=== PATIENT | female | born 1965 | race Caucasian/White ===

== ENCOUNTER 2023-04-06 14:56 | Outpatient (REF) | payer OTHER, SELFPAY ==
--- NOTE | ~2023-04-06 | XR_ITS ---
EXAMINATION: XR LUMBOSACRAL SPINE WITH OBLIQUES CLINICAL INFORMATION: The secondary scoliosis, site unspecified COMPARISON: None available. TECHNIQUE: AP, both oblique, and lateral views of the lumbar spine. Lateral view of the lumbosacral junction. Lateral flexion and extension views FINDINGS: There 5 nonrib-bearing lumbar-type vertebral bodies. There is marked rotatory curve of the lumbar spine, convex left. The height of the vertebral bodies is well-maintained. There is disc space narrowing at all lumbar levels. Degenerative facet joint disease is seen at L4-L5 and marked at L5-S1. There is mild retrolisthesis of L3 with respect to L4 which is unchanged on flexion and extension. XR/XR lumbar spine 4V min IMPRESSION: 1. Marked rotatory curve of the lumbar spine, convex left. 2. Multilevel degenerative disc disease and degenerative facet joint disease. 3. Mild retrolisthesis of L3 with respect to L4.
== END 2023-04-06 14:57 | disposition home or self-care (01) ==
LOC: HO.HOSX 14:56
PROVIDERS: Visit Provider Neurological Surgery
DX: M51.36 Other intervertebral disc degeneration, lumbar region (principal); M41.50 Other secondary scoliosis, site unspecified
CPT/HCPCS: 72110

== ENCOUNTER 2023-06-28 06:04 | Inpatient (IN) | payer OTHER, SELFPAY ==
[2023-06-15 12:23] VITALS: BP 126/81; PULSE 78; RESP 20; O2SAT 97; BMI 37.6
--- NOTE | 2023-06-15 12:33 | HO.ANESPROP2 ---
Documented by User: Marie Marquez NP 06/18/23 13:14 HPI - Anesthesia Eval Consult details Narrative: 57yo F for L3-S1 Oblique Lumbar Interbody Fusion,(poss L2), 06/28/23 PONV - will try aponvie BESSY Active Problems Active Problems: All Active Problems (Updated 06/15/23 @ 12:15 by Jossy Burdick RN) Scoliosis due to degenerative disease of spine in adult patient (Acute) Past Medical History Medical History Arthritis Back pain Chronic back pain PONV (postoperative nausea and vomiting) RBBB Rheumatic fever Scoliosis Sepsis Family History Family history of problems with anesthesia: Yes (sister PONV) Surgical History Surgical History History of History of pubovaginal sling Hx of appendectomy Hx of bilateral salpingectomy Hx of cholecystectomy Hx of mastectomy Hx of reduction mammoplasty History of Problems with Anesthesia: Yes (PONV) Social History Social History Are you a primary home health care worker to a significant other at home: No Do you presently have visiting nurse or other home services: No Patient Tobacco Use Status: Never used Tobacco Use of substances other than those prescribed or required for medical reasons: No Have you been hit, kicked, punched, or otherwise hurt by someone within the past year? If so, by whom?: No Are you DNR?: No Advance Directives: No Advance Directives Information Provided: No (declined) Advance Directives on File: No Recently lost weight without trying: No Eating poorly because of decreased appetite: No Nutrition Risks: No Nutritional Risk Poor oral hygiene: No (implants lower front four teeth and one left and one right lower crowns-mol) Meds Allergies Allergy/AdvReac Type Severity Reaction Status Date / Time deer fly Allergy Severe Anaphylaxis Uncoded 06/28/23 06:29 Home Medications Medication Instructions Recorded Confirmed Last Taken Type acetaminophen 500 mg tablet 1,000 mg PO QAM 06/15/23 06/15/23 Unknown History celecoxib 200 mg capsule 200 mg PO DAILY PRN Pain 06/15/23 06/15/23 Unknown History cetirizine 5 mg tablet 5 mg PO DAILY 06/15/23 06/15/23 Unknown History cholecalciferol (vitamin D3) 50 50 mcg PO DAILY 06/15/23 06/15/23 Unknown History mcg (2,000 unit) capsule (Vitamin D3) cyclobenzaprine 10 mg tablet 10 mg PO BEDTIME PRN Muscle Spasm 06/15/23 06/15/23 Unknown History gabapentin 100 mg capsule 100 mg PO TID 06/15/23 06/15/23 Unknown History Exam Exam Date and Time: June 15, 2023 1233 Pertinent Lab Results Pertinent Lab Results: BMP and CBC done 06/2023 from outside facility WNL Narrative Narrative: EKG 06/2023 SR @ 69 Incomp RBBB (old) Airway Mallampati Class: II TM Dist: >3cm Neck ROM: Full Loose/Missing/Broken Teeth: No (Implant 23-26, crowned molas) Heart: RRR Lungs: CTAB Assessment and Plan Assessment Anesthesia Assessment: Anesthesia Plan Discussed and PAT Visit Final Anesthetic Review Family History of Problems with Anesthesia: Yes (sister PONV) History of Problems with Anesthesia: Yes (PONV) Documented by User: Alexx Velasquez MD 06/28/23 08:24 [facility] Past Medical History Medical History Arthritis Back pain Chronic back pain PONV (postoperative nausea and vomiting) RBBB Rheumatic fever Scoliosis Sepsis Surgical History Surgical History History of History of pubovaginal sling Hx of appendectomy Hx of bilateral salpingectomy Hx of cholecystectomy Hx of mastectomy Hx of reduction mammoplasty Social History Social History Are you a primary home health care worker to a significant other at home: No Do you presently have visiting nurse or other home services: No Patient Tobacco Use Status: Never used Tobacco Use of substances other than those prescribed or required for medical reasons: No Have you been hit, kicked, punched, or otherwise hurt by someone within the past year? If so, by whom?: No Are you DNR?: No Advance Directives: No Advance Directives Information Provided: No (declined) Advance Directives on File: No Recently lost weight without trying: No Eating poorly because of decreased appetite: No Nutrition Risks: No Nutritional Risk Poor oral hygiene: No (implants lower front four teeth and one left and one right lower crowns-mol) Meds Allergies Allergy/AdvReac Type Severity Reaction Status Date / Time deer fly Allergy Severe Anaphylaxis Uncoded 06/28/23 06:29 Home Medications Medication Instructions Recorded Confirmed Last Taken Type acetaminophen 500 mg tablet 1,000 mg PO QAM 06/15/23 06/15/23 Unknown History celecoxib 200 mg capsule 200 mg PO DAILY PRN Pain 06/15/23 06/15/23 Unknown History cetirizine 5 mg tablet 5 mg PO DAILY 06/15/23 06/15/23 Unknown History cholecalciferol (vitamin D3) 50 50 mcg PO DAILY 06/15/23 06/15/23 Unknown History mcg (2,000 unit) capsule (Vitamin D3) cyclobenzaprine 10 mg tablet 10 mg PO BEDTIME PRN Muscle Spasm 06/15/23 06/15/23 Unknown History gabapentin 100 mg capsule 100 mg PO TID 06/15/23 06/15/23 Unknown History Assessment and Plan Final Anesthetic Review NPO: No ASA Class: II Final Preanesthetic Review: No Changes in Pt Med Stat, Meds/Allgs Chart Reviewed, Consent Obtained/Reviewed and Anes Risks/Benef Reviewed Patient Risk: Intermediate Procedure Risk: Intermediate Anesthetic Plan Anesthetic Plan: GA and Agree w/ Assess. and Plan Disposition: Standard PACU
[2023-06-28] VITALS (16 sets, daily range): BP systolic 96–149; BP diastolic 49–97; PULSE 83–108; RESP 13–24; TEMP 36–36.6; O2SAT 94–100
--- NOTE | ~2023-06-28 | FL_ITS ---
EXAMINATION: XR FLUOROSCOPY WITH IMAGES CLINICAL INFORMATION: Oblique lateral interbody fusion. COMPARISON: Lumbar spine x-ray March 2023. TECHNIQUE: Total dose: 320.9 mGy DAP 55.301: Gy-cm2 Time: 4.2 min Images: 4 Images - 2 C-arms used Tech: HELEN/TL/VERONICA SUPERVISOR OF RESEARCH: Dr. Aleman. FINDINGS: Fluoroscopy guidance provided for disc prostheses placement at the L3-L4, L4-L5 and L5-S1 levels. FL/FL guidance in OR IMPRESSION: Fluoroscopy guidance for lumbar spine surgery.
[2023-06-28] MEDS: Gabapentin 300 MG CAPSULE PO ×3 (06:30→20:00)
[2023-06-28] MEDS: methocarbamoL 750 MG TABLET PO (06:30)
[2023-06-28] MEDS: Aprepitant 32 MG/4.4 ML VIAL IVPUSH (06:53)
[2023-06-28] MEDS: Lactated Ringers 1,000 ML 100 ML IVCONT (07:09)
--- NOTE | 2023-06-28 07:13 | MHC.SHP ---
Pre-Procedural Eval Section A Date of Service: 06/28/23 The patient is an INPATIENT: No Changes since office visit: No Cold of Flu in the past 2 weeks, No New Medical Problems, No Changes in Medication and No Patient answered all questions The History & Physical has been completed within 30 days and I have reviewed it.: No Section B Chief Complaint: Other secondary scoliosis, site unspecified Allergies: Allergies Allergy/AdvReac Type Severity Reaction Status Date / Time deer fly Allergy Severe Anaphylaxis Uncoded 06/28/23 06:29 Review of Systems Sugical H&P ROS: Negative: Constitution, Cardiovascular, Respiratory, Neurological, Psychiatric, Hem-Onc, Allergic/Immunologic, Gastrointestinal, Genitourinary, Musculoskeletal, Integumentary, Endocrine and Eyes/Ears/Nose/Throat Exam Surgical H&P Exam: Not Evaluated: HEENT, Not Evaluated: Heart, Not Evaluated: Lungs, Not Evaluated: Extremities, Not Evaluated: Abdomen, Not Evaluated: Skin and Not Evaluated: Neurological Plan Diagnosis/Plan: Unchanged I have reviewed the history and physical and performed a pertinent physical examination on my patient. No changes have occurred unless specified. L3-S1 Oblique Lumbar Interbody Fusion Time Spent With Patient Time: Total time managing care of this patient today _10___ minutes.
--- NOTE | 2023-06-28 11:14 | P.OP_ITS ---
Operative Note Operative Note Date of Service: 06/28/23 Narrative: The patient was brought to the operating room, positioned on the table supine and general anesthesia was administered. Patient was then turned to the right decubitus position with left side up. C-arm image was obtained in AP and lateral planes and anterior border of the spine and disk space projections were marked on the skin.The abdomen was clipped and then prepped and draped in the usual sterile fashion. After timeout was done, incision was made from 2 cm medial and inferior to the Anterior Superior iliac spine in oblique direction 5 cm long. It was brought through subcutaneous tissue and the external oblique aponeurosis in line with the skin incision and transverse and internal abdominal muscles were split along the fibers. The pre-peritoneal plane was entered, peritoneum was bluntly dissected off and iliac artery pulse was felt. Self- retaining retractor with two deep blades was inserted and peritoneum protected with moist gauzes. Left internal iliac vein was identified and dissection was carried along the medial surface of the iliac vein up to the bifurcation. The middle sacral vessels were transected and L5-S1 disc space was bluntly and sharply dissected using bipolar cautery staying directly on the surface of the spine. The midline of the disk space was marked with C-arm image guide.At this time some bleeding was encountered from the ilial vein likely from traction and several clips were applied with good hemostasis Dr. Aleman then proceeded with the corpectomy and fusion, which will be dictated separately by him. After this was done, hemostasis was checked and was excellent including the repaired portion of the iliac vein. Left ureter was examined prior to closure and was intact. There was good left external iliac artery pulse. Diluted 0.5% Marcaine and Lidocaine was injected in the fascia and subcutaneous tissue. The incision was irrigated and closed by layers using a 2-0 Vicryl for transverse fascia, 0 PDS for the external oblique, 3-0 Vicryl for subcutaneous tissue and 4-0 Monocryl for skin. Exo-fin glue was then applied.
--- NOTE | 2023-06-28 13:17 | P.OP_ITS ---
Operative Note Operative Note Date of Service: 06/28/23 Narrative: Preop Diagnosis: 1.) lumbar degenerative scoliosis and lumbar radiculopathy Procedure: L3-4, L4-5 and L5-S1 discectomy, arthrodesis and implantation cage through an anterolateral, retroperitoneal approach; posterior instrumented fusion L3-S1; allograft Consent Informed Consent was obtained for this operation. I have explained the nature, purpose and benefits of the operation. I have discussed the risks and benefit of the operation including possible complications or adverse events with patient/family. Alternative(s) were discussed with the patient with their relative benefits and risks as well as the consequences of not accepting the operation were included in obtaining consent. Surgeon: AXEL CONDON MD, PHD Procedure Assisted By: Magdi Flores MD, co-surgeon and Tony Brar Description of Procedure this 57-year-old female her suffering from intractable low back pain and a left lumbar radiculopathy. Imaging shows a lumbar degenerative scoliosis in the lower lumbar region with additional multilevel neural foraminal stenosis. The patient was offered an oblique lumbar interbody fusion L3-S1. The procedure complications were explained. The patient was consented. The patient was brought to the operating room and endotracheally intubated. The patient was turned in a lateral position with the left side up. Prep and drape was done followed by timeout. A 3 inch incision was made in the left lower abdominal quadrant by the access surgeon, Dr. Flores to expose the L5-S1 disc. The approach will be dictated in a separate report. I took over the procedure with the L5-S1 disc space was exposed. An annulotomy was done and with the elevator Estrella the disc material was release of the L5 and S1 endplates. disc material was removed and the endplates were prepared. A [id number] mm with 12 degree lordosis 4 Web cage was inserted into the L5-S1 disc space under fluoroscopic guidance. Then the attention was turned to the L3-4 and L4-5 disc spaces.The muscle fascia was opened after which the 3 muscle layer was split to enter the retroperitoneal space. Dilators were docked in the anterior one third of the L4-5 disc space followed by a retractor. The retractor was opened. The L4-5 disc space was exposed. An annulotomy was done after which an elevator Estrella was used to release the disc material from its endplates and to perforate the contralateral side. A partial discectomy was done. An 8 mm height trial implant was inserted. The discectomy was completed. The endplates were prepared. An 8 mm x 50 mm with 0 degree lordosis 4 web cage filled with allograft was inserted into the disc space under fluoroscopic guidance. The L3-4 disc space underwent a the similar procedure. When the endplates were prepared an 8 mm x 45 mm in with severe degree lordosis 4 web cage filled with allograft was inserted into the disc space under fluoroscopic guidance. The insertion of the 3 cages resulted in excellent correction of the lumbar degenerative scoliosis and indirect decompression of the neural foramina.. The retractor was removed. Dr. Flores closed the anterolteral incision. This marked first part of the procedure. The patient was turned prone on the [place] spine table. 2C arms were installed for fluoroscopy. Prep and drape was done followed by a second timeout. 2 paramedian incisions were made lateral from the L3 pedicle. The muscle fascia was opened after which the muscle layer was split bluntly to expose the posterolateral gutter. The following steps were taken. A pediguard tap was used to create a transpedicular trajectory into the vertebral body. A K wire was placed. A specially designed instrument was advanced over the K wire to decorticate the posterolateral gutter in preparation for the posterolateral fusion. A pedicle screw was advanced over the K wire and the K wire was removed. The steps were done for the bilateral L3, L4, L5 and S1 pedicles. A total of 8 screws screws were placed with a diameter of 6.5 x 45 mm in bilateral L3, L4 and L5 pedicles and a 6.5 x 40 mm screw in the bilateral S1 pedicles. The pedicle screws were connected with 100 mm jordon bilaterally and locked down with locking caps. The extension towers were removed. The posterolateral gutter was filled with allograft to complete the posterolateral L3-S1 fusion Hemostasis was done and the incision was closed in 2 layers. Steri-Strips were used to dion roximate the incision. An OpSite were taken and was used to cover the incision. All sponge and needle counts were correct. Patient was extubated and transferred in stable is to recovery room. The insertion of the bilateral rods and closure of the paramedian incisions was done by Tony TOM. Anesthesia: General Estimated Blood Loss (ml): 400 mL Duration of Surgery: 5hrs Postoperative Plan: Admit to inpatient for observation Complications: None
[2023-06-28] MEDS: fentaNYL citrate/PF 100 MCG/2 ML VIAL 25 MCG IVPUSH ×4 (14:15→14:55)
[2023-06-28] MEDS: HYDROmorphone HCl 0.5 MG/0.5 ML SYRINGE 0.25 MG IVPUSH ×2 (14:25→14:35)
[2023-06-28] MEDS: ceFAZolin Sodium/Dextrose,Iso 2 GM/50 ML PIGGYBACK IV ×2 (16:11→20:01)
[2023-06-28] MEDS: oxyCODONE HCl Immed Release 5 MG TABLET 10 MG PO (16:11)
[2023-06-28] MEDS: HYDROmorphone HCl 1 MG/ML SYRINGE IVPUSH ×2 (16:48→19:59)
[2023-06-28] MEDS: Acetaminophen 1,000 MG/100 ML PIGGYBACK 400 MG IV ×2 (17:54→23:50)
[2023-06-28] MEDS: Ketorolac Tromethamine 15 MG/ML VIAL IVPUSH (19:09)
[2023-06-28] MEDS: Cyclobenzaprine HCl 5 MG TABLET PO (19:16)
[2023-06-28] MEDS: ondansetron HCL 4 MG/2 ML VIAL IVPUSH (19:59)
[2023-06-28] MEDS: Docusate Sodium 100 MG CAPSULE PO (20:00)
[2023-06-28] MEDS: oxyCODONE HCl Immed Release 5 MG TABLET PO (22:25)
[2023-06-29] MEDS: Ketorolac Tromethamine 15 MG/ML VIAL IVPUSH ×3 (01:59→12:55)
[2023-06-29] MEDS: ceFAZolin Sodium/Dextrose,Iso 2 GM/50 ML PIGGYBACK IV (02:00)
[2023-06-29 03:38] VITALS: BP 114/58; PULSE 88; RESP 16; TEMP 36.4; O2SAT 96
[2023-06-29] MEDS: 0.9 % Sodium Chloride 1,000 ML 75 ML IVCONT (05:50)
[2023-06-29] MEDS: Acetaminophen 1,000 MG/100 ML PIGGYBACK 400 MG IV ×2 (05:50→12:54)
[2023-06-29] MEDS: oxyCODONE HCl Immed Release 5 MG TABLET PO ×2 (05:54→10:46)
[2023-06-29 07:03] VITALS: BP 101/59; PULSE 85; RESP 16; TEMP 36.6; O2SAT 99
--- NOTE | 2023-06-29 07:45 | HO.NEURO.PN ---
Neurosurgery Operative Note Date of Service: 06/29/23 Narrative: Postoperative day 1. L3-S1 oblique lumbar interbody fusion Patient reports back pain overnight, also reporting some tingling into her foot and calf. Also reporting a little bit of pain going into her anterior thigh. She was up moving around and does not feel any specific weakness is more just the tingling and numbness feeling. She has been drinking fluids without any issues. She has been up to the commode voiding. Afebrile, vital signs stable Physical exam: Patient is awake alert oriented no acute distress, patient examined at bedside with Dr. Aleman, patient has full strength of bilateral lower extremities. She does have some reduced sensation along the top of her foot. The rest of the lower extremity sensation is normal. Abdomen is nondistended nontender, left lower quadrant incision is clean and dry with Steri-Strips in place, no signs of hematoma or distention. No guarding. Back dressings are clean and dry, no signs of hematoma. Impression: Postop day 1. L3-S1 oblique lumbar interbody fusion, clinically having back pain and some numbness in her left foot. Her strength is intact, we suspect this is nerve irritation. She is otherwise doing okay, we suspect she will do well with PT today and we can discharge her home later today if she clears with them. She also must be tolerating a regular diet. Patient seen at bedside with Dr. Aleman.
--- NOTE | 2023-06-29 07:48 | P.DS_ITS ---
DS: Providers Provider Date of Service: 06/29/23 Date of admission: 06/28/23 06:04 Date of discharge: 06/29/23 Primary care physician: Slim Ray MD Admitting clinician: Michael Aleman DS: Diagnosis Discharge Diagnosis (1) Scoliosis due to degenerative disease of spine in adult patient: Status: Acute DS: Summary Time Spent with Patient Time attestation: Total time managing care of this patient today ____ minutes. Discharge coordination time: Less than 30 minutes Quality: Safe Use of Opioids Does Pt have an Active Cancer Diagnosis on the Problem List?: No Quality: Stroke Does the patient have a stroke diagnosis?: No Physical Exam Vital Signs: Vital Signs: Last Vital Signs Temp 98 F 06/29/23 07:03 Pulse 85 06/29/23 07:03 Resp 16 06/29/23 07:03 BP 101/59 L 06/29/23 07:03 Pulse Ox 99 06/29/23 07:03 O2 Del Method Room Air 06/29/23 07:03 O2 Flow Rate 3 06/28/23 15:30 BMI result Body Mass Index 37.6 DS: Data Data Completed and Pending Labs on day of discharge: Laboratory Results - last 24 hr 06/28/23 08:52 Blood Type A Negative Antibody Screen NEGATIVE Discharge Plan Discharge Anticipated Discharge Date/Time: 06/29/23 14:48 Patient Disposition: Home, Self-Care Discharge Diagnosis: Lumbar scoliosis Referrals: Slim Ray MD [Primary Care Provider] - 1 Week Discharge Medications: New oxycodone 5 mg tablet See Rx Instructions .ROUTE .COMPLEX PRN (Reason: pain) Qty: 30 0RF Rx Instructions: 1-2 tabs po q4 hours prn pain Partial Fill upon patient request. gabapentin 300 mg capsule 300 mg PO TID Qty: 90 2RF ibuprofen 800 mg tablet 800 mg PO Q8H Qty: 60 0RF Continued cyclobenzaprine 10 mg tablet 10 mg PO BEDTIME PRN (Reason: Muscle Spasm) cetirizine 5 mg Tablet 5 mg PO DAILY cholecalciferol (vitamin D3) [Vitamin D3] 50 mcg (2,000 unit) Capsule 50 mcg PO DAILY Held celecoxib 200 mg capsule 200 mg PO DAILY PRN (Reason: Pain) Hold Instructions: Resume on 07/05/23. Discontinued gabapentin 100 mg capsule 100 mg PO TID acetaminophen 500 mg Tablet 1,000 mg PO QAM Discharge Orders: Discharge Order (Routine); Ordered 06/29/23 Ordered By: Tony Antonio Diet: Advance to usual diet Activity on Discharge: As tolerated Stand Alone Forms: Patient Portal Discharge page Activity Restrictions/Additional Instructions: After your spinal surgery we ask you to observe the following restrictions/guidelines: Activity: It is normal to feel some discomfort as you increase your activity, but that will improve with time. We ask you avoid heavy lifting or acitivities that cause pain. As a general rule, 8lbs is a safe limit for lifting right after surgery. Walk as much as you feel comfortable but not to exhaustion. You will feel extra tired the first few days after surgery. Stay well hydrated. It is OK to walk up and down stairs You may return to driving when you are off narcotics (such as vicodin, oxycodone, dilaudid, etc), and you are back to normal functional capacity. If you have any concerns please check with office before driving. Return to work is specific to each patient and each surgery, so please speak with your doctor/PA at first follow up. Please bring paperwork such as FMLA at that time if you need it filled out. Medications: For optimum pain control, it is best to start with a combination of 500 mg of Tylenol every 4 hours with 600 mg of Motrin every 8 hours, and use narcotics as needed in between for breakthrough pain. We will give you a short supply of narcotics after surgery (usually one weeks worth). If you need more please call the office but do not use more than prescribed. You will need to give our office 48 hours notice if you need narcotics refilled and we do not fill narcotics on weekends or evenings. If you are on a narcotic, it is a good idea to take a stool softener such as colace or senna to avoid constipation If you take blood thinner such as aspirin, Plavix, Coumadin, Effient, Eliquis et c for conditions such as Afib, DVT, Pulmonary embolus, coronary disease, stents etc please speak with your surgeon about specific details as to when you can resume these medications. You can resume NSAIDs on post op day 1 (eg: Motrin, Naproxen, etc). Follow up: Please call the office, , after surgery to arrange a 3 week follow up for wound check. Wound Care: You may remove your dressing on the first day after surgery. You may leave open to air. Please do not remove the steri strips underneath. they will fall off on their own in one week. IT IS NORMAL FOR THE WOUND TO OOZE OR BE BLOODY FOR A FEW DAYS AFTER SURGERY. IF THIS HAPPENS JUST PLACE NEW DRESSING OVER IT TO AVOID STAINING CLOTHES. You may shower on post op day # 1 We ask that you do not let the water soak the wound. If it does get wet, just towel dry lightly. Please do not scrub your incision or place any type of chemical/ointment on the wound. No tub baths, pools or jacuzzis for one month. If you have any leaking or redness from your wound, or fevers, please call office Care Plan Goals: dc home Health Concerns: none Plan of Treatment: dc home Assessment: stable
[2023-06-29] MEDS: Loratadine 10 MG TABLET PO (07:49)
[2023-06-29] MEDS: Docusate Sodium 100 MG CAPSULE PO (07:49)
[2023-06-29] MEDS: Cholecalciferol (Vitamin D3) 25 MCG TABLET 50 MCG PO (07:49)
[2023-06-29] MEDS: Gabapentin 300 MG CAPSULE PO (07:49)
--- NOTE | 2023-06-29 09:27 | PM.DS ---
DS: Providers Provider Date of Service: 06/29/23 Date of admission: 06/28/23 06:04 Primary care physician: Slim Ray MD DS: Diagnosis Discharge Diagnosis (1) Scoliosis due to degenerative disease of spine in adult patient: Status: Acute DS: Summary Time Spent with Patient Time attestation: Total time managing care of this patient today ____ minutes. Discharge coordination time: Less than 30 minutes Quality: Safe Use of Opioids Does Pt have an Active Cancer Diagnosis on the Problem List?: No Quality: Stroke Does the patient have a stroke diagnosis?: No Physical Exam Vital Signs: Vital Signs: Last Vital Signs Temp 98 F 06/29/23 07:03 Pulse 85 06/29/23 07:03 Resp 16 06/29/23 07:03 BP 101/59 L 06/29/23 07:03 Pulse Ox 99 06/29/23 07:03 O2 Del Method Room Air 06/29/23 07:03 O2 Flow Rate 3 06/28/23 15:30 BMI result Body Mass Index 37.6 DS: Data Data Completed and Pending Labs on day of discharge: Laboratory Results - last 24 hr 06/28/23 08:52 Blood Type A Negative Antibody Screen NEGATIVE Discharge Plan Discharge Anticipated Discharge Date/Time: 06/29/23 14:48 Patient Disposition: Home, Self-Care Discharge Diagnosis: Lumbar scoliosis Referrals: Slim Ray MD [Primary Care Provider] - 1 Week Discharge Medications: New oxycodone 5 mg tablet See Rx Instructions .ROUTE .COMPLEX PRN (Reason: pain) Qty: 30 0RF Rx Instructions: 1-2 tabs po q4 hours prn pain Partial Fill upon patient request. gabapentin 300 mg capsule 300 mg PO TID Qty: 90 2RF ibuprofen 800 mg tablet 800 mg PO Q8H Qty: 60 0RF cephalexin 500 mg capsule 500 mg PO QID 7 Days Qty: 28 0RF Continued cyclobenzaprine 10 mg tablet 10 mg PO BEDTIME PRN (Reason: Muscle Spasm) cetirizine 5 mg Tablet 5 mg PO DAILY cholecalciferol (vitamin D3) [Vitamin D3] 50 mcg (2,000 unit) Capsule 50 mcg PO DAILY Held celecoxib 200 mg capsule 200 mg PO DAILY PRN (Reason: Pain) Hold Instructions: Resume on 07/05/23. Discontinued gabapentin 100 mg capsule 100 mg PO TID acetaminophen 500 mg Tablet 1,000 mg PO QAM Discharge Orders: Discharge Order (Routine); Ordered 06/29/23 Ordered By: Tony Antonio Diet: Advance to usual diet Activity on Discharge: As tolerated Stand Alone Forms: Patient Portal Discharge page Activity Restrictions/Additional Instructions: After your spinal surgery we ask you to observe the following restrictions/guidelines: Activity: It is normal to feel some discomfort as you increase your activity, but that will improve with time. We ask you avoid heavy lifting or acitivities that cause pain. As a general rule, 8lbs is a safe limit for lifting right after surgery. Walk as much as you feel comfortable but not to exhaustion. You will feel extra tired the first few days after surgery. Stay well hydrated. It is OK to walk up and down stairs You may return to driving when you are off narcotics (such as vicodin, oxycodone, dilaudid, etc), and you are back to normal functional capacity. If you have any concerns please check with office before driving. Return to work is specific to each patient and each surgery, so please speak with your doctor/PA at first follow up. Please bring paperwork such as FMLA at that time if you need it filled out. Medications: For optimum pain control, it is best to start with a combination of 500 mg of Tylenol every 4 hours with 600 mg of Motrin every 8 hours, and use narcotics as needed in between for breakthrough pain. We will give you a short supply of narcotics after surgery (usually one weeks worth). If you need more please call the office but do not use more than prescribed. You will need to give our office 48 hours notice if you need narcotics refilled and we do not fill narcotics on weekends or evenings. If you are on a narcotic, it is a good idea to take a stool softener such as colace or senna to avoid constipation If you take blood thinner such as aspirin, Plavix, Coumadin, Effient, Eliquis etc for conditions such as Afib, DVT, Pulmonary embolus, coronary disease, stents etc please speak with your surgeon about specific details as to when you can resume these medications. You can resume NSAIDs on post op day 1 (eg: Motrin, Naproxen, etc). Follow up: Please call the office, , after surgery to arrange a 3 week follow up for wound check. Wound Care: You may remove your dressing on the first day after surgery. You may leave open to air. Please do not remove the steri strips underneath. they will fall off on their own in one week. IT IS NORMAL FOR THE WOUND TO OOZE OR BE BLOODY FOR A FEW DAYS AFTER SURGERY. IF THIS HAPPENS JUST PLACE NEW DRESSING OVER IT TO AVOID STAINING CLOTHES. You may shower on post op day # 1 We ask that you do not let the water soak the wound. If it does get wet, just towel dry lightly. Please do not scrub your incision or place any type of chemical/ointment on the wound. No tub baths, pools or jacuzzis for one month. If you have any leaking or redness from your wound, or fevers, please call office Care Plan Goals: dc home Health Concerns: none Plan of Treatment: dc home Assessment: stable
--- NOTE | 2023-06-29 11:16 | MHC.CM.PN ---
pt dcd home no skilled servceis ordered by
--- NOTE | 2023-06-29 16:43 | HO.POSTANES ---
Post Anesthesia Evaluation Post Anesthesia Evaluation Date of Service: 06/29/23 Vital Signs: Vital Signs Temp Pulse Resp BP Pulse Ox O2 Del Method 06/29/23 07:03 98 F 85 16 101/59 L 99 Room Air Anesthesia: General Endotracheal-GETA Mental Status: Awake Pain Control: Satisfactory (some back pain) Nausea/Vomiting: None Hydration: Adequate Anesthesia-Related Issues: No Anes. Related Issues
== END 2023-06-29 14:34 | disposition home or self-care (01) | DRG 458 ==
LOC: HO.SSSA 06:12 → HO.S3 14:24
PROVIDERS: Admitting Provider Neurological Surgery; PCP Internal Medicine; Visit Provider Neurological Surgery
PROC: 0SG30A0 Fusion of Lumbosacral Joint with Interbody Fusion Device, Anterior Approach, Anterior Column, Open Approach (ICD-10-PCS; principal; 2023-06-28 07:30)
DX: M51.16 Intervertebral disc disorders with radiculopathy, lumbar region (principal); M41.57 Other secondary scoliosis, lumbosacral region; M48.061 Spinal stenosis, lumbar region without neurogenic claudication
CPT/HCPCS: 86850; 86900; 86901; 97161; C1713; C9145; J0131; J0690; J1100; J1170; J1885; J2250; J2405; J3010; L8699

== ENCOUNTER → 2023-06-28 06:04 | Outpatient (BNV) | payer OTHER, SELFPAY | PROVIDERS: Admitting Provider Neurological Surgery; PCP Internal Medicine; Visit Provider Surgery | DX: M41.50 Other secondary scoliosis, site unspecified (principal); Z48.89 Encounter for other specified surgical aftercare | CPT/HCPCS: 20930; 22558; 22585; 22612; 22614; 22842; 22853; 99024; 99499 ==

== ENCOUNTER 2023-07-23 14:32 | Outpatient (AMB) | payer OTHER, SELFPAY ==
--- NOTE | 2023-07-23 14:51 | A.SPINEOV_ITS ---
Intake Intake Visit Reasons: 1ST POST OP Intake Note: Ms. Lopes is here today for her 1st post-op visit. Facilities Maintenance Assistant Required: No Allergies deer fly Allergy (Severe, Uncoded 06/28/23 06:29) Anaphylaxis Assessment & Plan Assessment & Plan (1) S/P spinal fusion: Code(s): Z98.1 - Arthrodesis status Plan Aminta is a 57-year-old female who comes in today for her 1st postoperative visit. She is s/p L3-S1 fusion. She states that she is still having some low back pain with radiation into her posterior thighs bilaterally. She states that prolonged standing and activity exacerbate her pain, but states that she has good relief of pain with gabapentin and skhv-gik-vbfcfse pain medications. She has been able to get out of bed and complete the majority of her ADLs around the home. She states she has remained active and attempted to walk daily. 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 Overall she feels she is doing well, but did express concern that she continues to have pain. She was encouraged that many of our patients continued to experience pain post fusion due to inflammation, at that they are typically doing much better brother 2nd postoperative visit. She was encouraged to continue utilizing the jeqd-grv-sruujne pain medications as needed, and to supplement him with gabapentin if the pain becomes more severe. On exam the patient has no sensory deficits. She ambulates with a cane but is able to rise from a seated position without difficulty. Her posterior incision sites appear clean without edema or erythema in her well-healing. She will need to return to the office in 6 weeks for 2nd postoperative visit. We will obtain x-rays at that time and re-evaluate the patient after. Total amount of time spent in this visit was 20 minutes in discussion of symptoms, intraoperative imaging results and subsequent plan of care. Celestine Aleman MD,PhD [facility] Orders: Orders XR lumbar spine 4V min 08/13/23 M41.50 - Other secondary scoliosis, site unspecified, Z98.1 - Arthrodesis status Coding Level of Care Code Est Pt Level 3 (45582) Diagnoses S/P spinal fusion Z98.1
== END 2023-07-23 15:15 | disposition home or self-care (01) ==
PROVIDERS: PCP Internal Medicine; Visit Provider Physician Assistant
DX: Z98.1 Arthrodesis status (principal)
CPT/HCPCS: 99024

== ENCOUNTER → 2023-07-23 14:32 | Outpatient (BNVA) | payer OTHER, SELFPAY | PROVIDERS: PCP Internal Medicine; Visit Provider Physician Assistant ==

== ENCOUNTER 2023-08-13 08:10 | Outpatient (REF) | payer OTHER, SELFPAY | END 2023-08-13 08:11 | disposition home or self-care (01) | LOC: HO.HOSX 08:10 | PROVIDERS: Visit Provider Physician Assistant | DX: Z13.89 Encounter for screening for other disorder (principal) ==

== ENCOUNTER 2023-09-03 08:39 | Outpatient (AMB) | payer OTHER, SELFPAY ==
--- NOTE | 2023-09-03 09:02 | MHC.OFFVIS ---
Intake Intake Visit Reasons: 2nd post op with X rays Intake Note: Pt here for her 2nd post up with X rays done Veterinary Surgeon Required: No Allergies deer fly Allergy (Severe, Uncoded 06/28/23 06:29) Anaphylaxis [facility] Medical History PONV (postoperative nausea and vomiting) Sepsis Back pain Arthritis Rheumatic fever RBBB Scoliosis Chronic back pain Surgical History (Updated 07/23/23 @ 15:10 by NEGRO Quinonez) History of pubovaginal sling Hx of reduction mammoplasty Hx of bilateral salpingectomy Hx of cholecystectomy Hx of appendectomy History of Hx of mastectomy Social History Household Members: Spouse Housing: House Are you a primary aged or disabled carer to a significant other at home: No Do you presently have visiting nurse or other home services: No Patient Tobacco Use Status: Never used Tobacco Assessment & Plan Assessment & Plan (1) S/P spinal fusion: Code(s): Z98.1 - Arthrodesis status Plan: Procedure: L3-S1 spinal fusion Aminta comes in today for her 2nd postoperative visit. She reports she is very satisfied with the surgery and feels much better than she did pre-operatively. She is up walking around and completing the majority of her ADLs. She does still report mild -moderate pain with good relief with eybu-ncy-lmugehd pain medications. She did state that it is still quite difficult for her to walk for extensive periods of time. We reviewed her imaging prior to surgery, and imaging from today, and discussed the correction of her lumbar spine as a result of her fusion surgery. She inquired about strength training and conditioning via of physical therapy is to help her with ambulation and completing her ADLs. she reported that she would prefer to go to physical therapy closer to her house, and not have it done [place] [facility] She was printed out a physical therapy referral form Mobility is intact. No neurological deficits. Sensation grossly intact. Patient is able to ambulate well, rises from a seated position without difficulty. Incision sites are closed, well healed, with no signs of drainage. The patient will be referred physical therapy per her request. She will not need further follow-up in can be discharged as a patient. Celestine Aleman MD,PhD [facility] Orders: Orders PT Evaluation and Treatment Today Z98.1 - Arthrodesis status Coding Level of Care Code Global (76757) Diagnoses S/P spinal fusion Z98.1
== END 2023-09-03 09:29 | disposition home or self-care (01) ==
PROVIDERS: PCP Internal Medicine; Visit Provider Physician Assistant
DX: Z98.1 Arthrodesis status (principal)
CPT/HCPCS: 99024

== ENCOUNTER → 2023-09-03 08:39 | Outpatient (BNVA) | payer OTHER, SELFPAY | PROVIDERS: PCP Internal Medicine; Visit Provider Physician Assistant ==

== ENCOUNTER 2023-09-03 08:40 | Outpatient (REF) | payer OTHER, SELFPAY ==
--- NOTE | ~2023-09-03 | XR_ITS ---
EXAMINATION: XR LUMBOSACRAL SPINE WITH OBLIQUES CLINICAL INFORMATION: Secondary sclerosis. COMPARISON: Lumbar spine radiographs 04/06/2023. Fluoroscopic guidance in OR 06/28/2023. TECHNIQUE: 4 views of the lumbar spine including AP, lateral flexion and extension views. FINDINGS: Advanced degenerative changes in the imaged lower thoracic spine. Redemonstration of rotary curvature of the lumbar spine with rightward curvature of the lower lumbar spine. Redemonstration of vertical rods and transverse screws transfixing L3-L4, L4-L5 and L5-S1 with interdisc prostheses. Hardware appears intact. Advanced degenerative changes with loss of disc space height and subchondral sclerosis at T12-L1, L1-L2 and L2-L3. Alignment preserved on flexion and extension views. XR/XR lumbar spine 4V min IMPRESSION: 1. Redemonstration of vertical rods and transverse screws transfixing L3-L4, L4-L5 and L5-S1 with interdisc prosthesis. Hardware appears intact. 2. Advanced degenerative changes at T12-L1, L1-L2 and L2-L3.
== END 2023-09-03 08:41 | disposition home or self-care (01) ==
LOC: HO.HOSX 08:40
PROVIDERS: Visit Provider Physician Assistant
DX: M41.9 Scoliosis, unspecified (principal); Z98.1 Arthrodesis status
CPT/HCPCS: 72110